=== PATIENT | female | born 1955 | race Asian ===

== ENCOUNTER 2016-08-31 13:32 | Outpatient (CLI) | payer OTHER ==
[2016-08-31 15:09] LABS: BASOPHILS # (AUTO) 0.2 K/uL (0.0-0.2); BASOPHILS % (AUTO) 1.9 % (0.0-2.0); EOSINOPHILS # (AUTO) 0.1 K/uL (0.0-0.4); EOSINOPHILS % (AUTO) 1.2 % (0.0-4.0); HEMATOCRIT 38.5 % (36-48); HEMOGLOBIN 12.9 g/dL (12.0-16.0); LYMPHOCYTES % (AUTO) 11.4 % (20.5-51.5); MEAN CORPUSCULAR HEMOGLOBIN 32 pg (27-31); MEAN CORPUSCULAR HGB CONC 34 % (32-36); MEAN CORPUSCULAR VOLUME 96 fL (79.0-98.0); MONOCYTES # (AUTO) 0.7 K/uL (0.0-1.0); MONOCYTES % (AUTO) 8.6 % (1.7-9.3); NEUTROPHILS # (AUTO) 6.5 K/uL (1.8-7.7); NEUTROPHILS % (AUTO) 76.9 % (40.0-70.0); PLATELET COUNT (AUTO) 245 K/uL (130-430); RED BLOOD CELL COUNT(AUTO) 4.03 MIL/uL (4.2-6.2); RED CELL DISTRIBUTION WIDTH 12.8 % (9.0-15.0); WHITE BLOOD COUNT (AUTO) 8.5 K/uL (4.8-10.8)
[2016-08-31 15:22] LABS: INR 0.9 (0.8-1.2); PROTHROMBIN TIME 9.7 SECS (9.5-12.5)
[2016-08-31 15:34] LABS: ALBUMIN 3.8 g/dL (3.4-4.8); CALCIUM 9.3 mg/dL (8.4-11.0); CREATININE 0.82 mg/dL (0.55-1.30); POTASSIUM 3.9 mmol/L (3.5-5.1); TOTAL BILIRUBIN 0.3 mg/dL (0.0-1.0); TOTAL PROTEIN, SERUM 8.2 g/dL (6.4-8.3)
[2016-08-31 15:44] LABS: BILIRUBIN,URINE NEGATIVE (NEGATIVE); BLOOD, URINE NEGATIVE (NEGATIVE); CLARITY/URINE CLEAR (CLEAR); COLOR,URINE YELLOW (YELLOW); GLUCOSE,URINE NEGATIVE (NEGATIVE); KETONES,URINE NEGATIVE (NEGATIVE); LEUKOCYTE ESTERASE ,URINE NEGATIVE (NEGATIVE); NITRITE, URINE NEGATIVE (NEGATIVE); PROTEIN URINE NEGATIVE (NEGATIVE); UROBILINOGEN,URINE 0.2 (0.2-1.0)
== END 2016-08-31 18:22 | disposition home or self-care (01) ==
LOC: SRD 13:32
DX: M41.84 Other forms of scoliosis, thoracic region (principal); R05 Cough
CPT/HCPCS: 36415; 71020-TC; 80053; 81003; 85025; 85610-TC; 85730-TC; 93005

== ENCOUNTER 2017-08-24 15:30 | Outpatient (CLI) | payer OTHER | END 2017-08-24 18:40 | disposition home or self-care (01) | LOC: SCA 15:30 | DX: Z01.810 Encounter for preprocedural cardiovascular examination (principal); K62.3 Rectal prolapse | CPT/HCPCS: 93005 ==

== ENCOUNTER 2022-03-28 15:28 | Inpatient (IN) | payer OTHER ==
[~2022-03-28] VITALS: Ht 149.9 cm; Wt 48.5 kg
[2022-03-28 15:30] VITALS: BP_SYST 163
[2022-03-28 17:23] LABS: BASOPHILS % (AUTO) 0.6 % (0.0-2.0); HEMATOCRIT 31.7 % (36-48); LYMPHOCYTES # (AUTO) 0.5 K/uL (1.0-5.5); LYMPHOCYTES % (AUTO) 9.3 % (20.5-51.5); MEAN CORPUSCULAR VOLUME 92 fL (79.0-98.0); MONOCYTES # (AUTO) 0.3 K/uL (0.0-1.0); MONOCYTES % (AUTO) 5.6 % (1.7-9.3); NEUTROPHILS # (AUTO) 4.2 K/uL (1.8-7.7); NEUTROPHILS % (AUTO) 84.5 % (40.0-70.0); PLATELET COUNT (AUTO) 226 K/uL (130-430); RED BLOOD CELL COUNT(AUTO) 3.44 MIL/uL (4.2-6.2); RED CELL DISTRIBUTION WIDTH 12.9 % (9.0-15.0)
--- NOTE | 2022-03-28 17:44 | NUR ---
Patient in bed 8, No acute distress noted, MD to assess patient
--- NOTE | 2022-03-28 17:50 | NUR ---
Patient states she has not been feeling well, states "I think i had covid". Patient states she is SOB, Vitals remain stable in no acute distress. Oxygen saturation 98% on RA, patient speaking in full sentences.
[2022-03-28 17:53] LABS: ANION GAP 12 (5-15); CALCIUM 8.9 mg/dL (8.4-11.0); CHLORIDE 92 mmol/L (98-107); CREATININE 0.97 mg/dL (0.55-1.30); GLUCOSE 105 mg/dL (70-99); POTASSIUM 3.8 mmol/L (3.5-5.1); SODIUM SERUM 125 mmol/L (136-145); UREA NITROGEN, BLOOD 24 mg/dL (8-21)
--- NOTE | 2022-03-28 18:00 | NUR ---
Patient remains stable in no acute distress and or discomfort.
[2022-03-28 18:02] LABS: ALANINE AMINOTRANSFERASE 29 U/L (12-78); ALBUMIN 3.2 g/dL (3.4-4.8); ASPARTATE AMINOTRANSFERASE 31 U/L (10-37); TOTAL BILIRUBIN 0.4 mg/dL (0.0-1.0)
[2022-03-28 18:09] LABS: GFR AFRICAN AMERICAN 74 mL/min (>90)
[2022-03-28] MEDS ORDERED: HYDROcodone/ACETAMIN 5-325 MG TAB (NORCO/ VICODIN) PO PRN (18:45)
[2022-03-28] MEDS ORDERED: MORPHINE 2 MG/ML INJ. SYRINGE IVP PRN (18:45)
[2022-03-28] MEDS ORDERED: ACETAMINOPHEN 325 MG TABLET PO PRN (18:45)
[2022-03-28] MEDS ORDERED: NACL 0.9% 1,000 ML IV ONE (18:45)
[2022-03-28] MEDS ORDERED: hydrALAZINE HCL 20 MG/ML VIAL IVP PRN (19:00)
--- NOTE | 2022-03-28 19:14 | NUR ---
Report given to incoming NOC RN, all cares assumed.
[2022-03-28 21:07] LABS: BILIRUBIN,URINE NEGATIVE (NEGATIVE); BLOOD, URINE NEGATIVE (NEGATIVE); CLARITY/URINE CLEAR (CLEAR); COLOR,URINE YELLOW (YELLOW); GLUCOSE,URINE NEGATIVE (NEGATIVE); KETONES,URINE 1+ (NEGATIVE); LEUKOCYTE ESTERASE ,URINE TRACE (NEGATIVE); NITRITE, URINE POSITIVE (NEGATIVE); PH,URINE 7.5 (5.0-8.0); PROTEIN URINE NEGATIVE (NEGATIVE); UROBILINOGEN,URINE 0.2 (0.2-1.0)
[2022-03-28 21:57] LABS: BACTERIA,URINE MANY /HPF (None Seen); MUCUS,URINE None Seen /LPF (None Seen); RBC,URINE NONE SEEN /HPF (0-3)
--- NOTE | 2022-03-28 22:28 | NUR ---
RN PLACED MG 16 FR PER PT REQUEST AND ER WAS NOTIFIED
[2022-03-28 23:03] VITALS: BP_SYST 145
--- NOTE | 2022-03-28 23:10 | NUR ---
PT WAS ADMITTED TO [facility] AND GIVEN REPORT TO DAGO BELL FOR CONTINUITY OF CARE
[2022-03-28] MEDS: NACL 0.9% 1,000 ML IV SCH (23:53)
[2022-03-29] MEDS ORDERED: PROTANDIM PO (00:17)
[2022-03-29] MEDS ORDERED: NITR50CA51 PO (00:27)
[2022-03-29] MEDS ORDERED: MAGN400T10 PO (00:27)
[2022-03-29] MEDS ORDERED: POTA8TAB66 PO (00:27)
[2022-03-29] MEDS ORDERED: VITD2000 PO ×2 (00:27→17:46)
--- NOTE | 2022-03-29 02:02 | NUR ---
THIS IS AN ADMISSION NOTE FOR A 67 YEAR OLD FEMALE UNDER THE CARE OF DOCTOR IMANI FOR GENERALIZED WEAKNESS, HYPONATREMIA AND DIZZINESS. DAGO UPTON RN
[2022-03-29 02:59] VITALS: BP_SYST 133
[2022-03-29 08:00] VITALS: BP_SYST 140
--- NOTE | 2022-03-29 08:00 | NUR ---
RECEIVED PATIENT IN BED AAO X4, VITAL SIGNS WITHIN NORMAL LIMITS, DENIES PAIN, SATURATION AT 100% ON ROOM AIR NOTED MG DRAINING WELL BY GRAVITY, IV NS AT 60 RUNNING TO RIGHT AC G 22, PATIENT'S BREAKFAST WAS SERVED, PATIENT'S MEDS WERE GIVEN ORDERED, CALL LIGHT PLACED TO REACH, IN NO ACUTE DISTRESS, ABLE TO MAKE NEEDS KNOWN.
[2022-03-29 08:28] LABS: BASOPHILS % (AUTO) 0.2 % (0.0-2.0); EOSINOPHILS % (AUTO) 0.1 % (0.0-4.0); HEMATOCRIT 32.4 % (36-48); LYMPHOCYTES # (AUTO) 0.5 K/uL (1.0-5.5); LYMPHOCYTES % (AUTO) 13.6 % (20.5-51.5); MEAN CORPUSCULAR VOLUME 92 fL (79.0-98.0); MONOCYTES # (AUTO) 0.3 K/uL (0.0-1.0); MONOCYTES % (AUTO) 9.1 % (1.7-9.3); NEUTROPHILS # (AUTO) 2.6 K/uL (1.8-7.7); PLATELET COUNT (AUTO) 244 K/uL (130-430); RED BLOOD CELL COUNT(AUTO) 3.51 MIL/uL (4.2-6.2); WHITE BLOOD COUNT (AUTO) 3.4 K/uL (4.8-10.8)
[2022-03-29 08:52] LABS: CALCIUM 8.5 mg/dL (8.4-11.0); CREATININE 0.77 mg/dL (0.55-1.30)
[2022-03-29] MEDS: ENOXAPARIN SODIUM 40 MG/0.4 ML SYRINGE SUBCUT SCH (09:35)
[2022-03-29] MEDS ORDERED: hydrALAZINE HCL 20 MG/ML VIAL IVP PRN (11:00)
[2022-03-29 12:09] VITALS: BP_SYST 131
--- NOTE | 2022-03-29 12:14 | NUR ---
RN reported to Dr. Denney that patient complained of lower back ache and requesting to have cipro. Patient states due to spinal cord injury hx. patient states she usually gets UTI. Dr. Denney came to the bedside to see pt. spoke to her about her health concerns, RN asked patient list of home meds for reconciliation. RN will continue to monitor. Call light placed to reach.
[2022-03-29] MEDS: NACL 0.9% 1,000 ML IV SCH (16:36)
[2022-03-29 16:45] VITALS: BP_SYST 135
--- NOTE | 2022-03-29 16:47 | NUR ---
Patient asked for a warm blanket, delivered one, denies pain, IV F bag replaced, patient tolerating well, in no acute diostress, patient call light placed to reach. Addendum: 03/29/22 at 1649 by [employer] ARABELLA Sauceda RN Patient asked for a warm blanket, delivered one, denies pain, IV F bag replaced, patient tolerating well, in no acute distress, patient call light placed to reach.
[2022-03-29] MEDS ORDERED: LEVO125T8 PO (17:46)
[2022-03-29] MEDS ORDERED: ZOLP3.5T4 SL (17:46)
[2022-03-29 19:37] VITALS: BP_SYST 127
[2022-03-29] MEDS ORDERED: ROSU10TA2 PO (20:26)
[2022-03-29] MEDS ORDERED: ALBUTEROL MDI INHALATION 8 GM INH INH PRN (21:30)
--- NOTE | 2022-03-29 21:40 | NUR ---
CONSULTATION PAGED/CALLED Reason for Consultation: COVID Person Who was Notified: LUIS ANTONIO Consulting Physician: FABIENNE Broodmare Foreman Specialty: Ordering Physician: SANTOSH
--- NOTE | 2022-03-29 22:05 | NUR ---
CONSULTATION PAGED/CALLED Reason for Consultation: COVID Person Who was Notified:DIANA Consulting Physician: BRENNAN Reproduction Specialist Specialty: Ordering Physician: SANTOSH
[2022-03-29 23:36] VITALS: BP_SYST 111
[2022-03-30] MEDS ORDERED: cefTRIAXone 1 GM VIAL ONE (02:57)
[2022-03-30] MEDS: cefTRIAXone 1 GM IVPB PREMIX 50 ML IV SCH ×2 (04:47→18:03)
[2022-03-30] MEDS: NACL 0.9% 1,000 ML IV SCH ×2 (04:48→18:03)
[2022-03-30 08:25] LABS: CALCIUM 8.5 mg/dL (8.4-11.0); CREATININE 0.76 mg/dL (0.55-1.30); POTASSIUM 3.7 mmol/L (3.5-5.1)
[2022-03-30] MEDS ORDERED: DECADRON 4 MG TABLET PO SCH (09:00)
[2022-03-30] MEDS ORDERED: HEPARIN SODIUM,PORCINE 5,000 UNITS/ML VIAL SUBCUT SCH (09:00)
[2022-03-30] MEDS ORDERED: ASCORBIC ACID 500 MG TABLET PO SCH (09:00)
[2022-03-30 10:36] VITALS: BP_SYST 113
[2022-03-30] MEDS ORDERED: CHOLECALCIFEROL (VITAMIN D3) 5,000 UNIT TABLET PO ONE (11:00)
[2022-03-30] MEDS: AZITHROMYCIN 250 MG TABLET PO SCH (12:02)
[2022-03-30] MEDS: ENOXAPARIN SODIUM 40 MG/0.4 ML SYRINGE SUBCUT SCH (12:03)
[2022-03-30] MEDS: ASCORBIC ACID 500 MG TABLET PO SCH (12:06)
[2022-03-30 13:18] VITALS: BP_SYST 121
[2022-03-30 13:40] LABS: CORRECTED WHITE BLOOD COUNT 3.7 K/uL (4.5-11.0); HEMATOCRIT 33.1 % (36-48); MEAN CORPUSCULAR VOLUME 96 fL (79.0-98.0); RED BLOOD CELL COUNT(AUTO) 3.45 MIL/uL (4.2-6.2); WHITE BLOOD COUNT (AUTO) 3.7 K/uL (4.8-10.8)
[2022-03-30 13:41] LABS: BASOPHILS % (AUTO) 0.4 % (0.0-2.0); EOSINOPHILS % (AUTO) 0.8 % (0.0-4.0); LYMPHOCYTES # (AUTO) 0.6 K/uL (1.0-5.5); LYMPHOCYTES % (AUTO) 15.2 % (20.5-51.5); MONOCYTES # (AUTO) 0.4 K/uL (0.0-1.0); MONOCYTES % (AUTO) 11.5 % (1.7-9.3); NEUTROPHILS # (AUTO) 2.6 K/uL (1.8-7.7); NEUTROPHILS % (AUTO) 72.1 % (40.0-70.0); PLATELET COUNT (AUTO) 250 K/uL (130-430)
[2022-03-30 16:38] VITALS: BP_SYST 125
[2022-03-30 20:00] VITALS: BP_SYST 127
[2022-03-31] VITALS: BP_SYST 121
[2022-03-31 04:00] VITALS: BP_SYST 126
[2022-03-31 07:12] LABS: CALCIUM 8.9 mg/dL (8.4-11.0); CREATININE 0.89 mg/dL (0.55-1.30); POTASSIUM 4.1 mmol/L (3.5-5.1)
[2022-03-31 07:24] LABS: BASOPHILS % (AUTO) 0.4 % (0.0-2.0); EOSINOPHILS # (AUTO) 0.1 K/uL (0.0-0.4); EOSINOPHILS % (AUTO) 2.1 % (0.0-4.0); HEMATOCRIT 33.1 % (36-48); LYMPHOCYTES # (AUTO) 0.7 K/uL (1.0-5.5); LYMPHOCYTES % (AUTO) 17.8 % (20.5-51.5); MEAN CORPUSCULAR VOLUME 93 fL (79.0-98.0); MONOCYTES # (AUTO) 0.5 K/uL (0.0-1.0); MONOCYTES % (AUTO) 11.8 % (1.7-9.3); NEUTROPHILS # (AUTO) 2.8 K/uL (1.8-7.7); NEUTROPHILS % (AUTO) 67.9 % (40.0-70.0); PLATELET COUNT (AUTO) 274 K/uL (130-430); RED BLOOD CELL COUNT(AUTO) 3.54 MIL/uL (4.2-6.2); RED CELL DISTRIBUTION WIDTH 13.1 % (9.0-15.0); WHITE BLOOD COUNT (AUTO) 4.1 K/uL (4.8-10.8)
[2022-03-31] MEDS ORDERED: LEVO-62 PO (08:05)
[2022-03-31] MEDS ORDERED: CHOLECALCIFEROL (VITAMIN D3) 5,000 UNIT TABLET PO SCH (09:00)
[2022-03-31] MEDS: ASCORBIC ACID 500 MG TABLET PO SCH (09:15)
[2022-03-31] MEDS: AZITHROMYCIN 250 MG TABLET PO SCH (09:16)
[2022-03-31] MEDS: ENOXAPARIN SODIUM 40 MG/0.4 ML SYRINGE SUBCUT SCH (09:17)
[2022-03-31 10:22] VITALS: BP_SYST 134
[2022-03-31 12:00] LABS: LACTATE DEHYDROGENASE 157 U/L (81-234)
[2022-03-31 12:01] LABS: C-REACTIVE PROTEIN QUANT < 0.2 mg/dL (0-0.5)
== END 2022-03-31 11:00 | disposition home or self-care (01) | DRG 177 ==
LOC: SED 15:28 → STU 18:38 → SMU 03-29 21:22
PROVIDERS: ADMIT Hospitalist; ATTEND Hospitalist
DX: U07.1 COVID-19 (principal); G82.50 Quadriplegia, unspecified; N17.0 Acute kidney failure with tubular necrosis; J12.82 Pneumonia due to coronavirus disease 2019; N39.0 Urinary tract infection, site not specified; E87.1 Hypo-osmolality and hyponatremia; E44.1 Mild protein-calorie malnutrition; I10 Essential (primary) hypertension; E78.5 Hyperlipidemia, unspecified; G89.29 Other chronic pain; M54.9 Dorsalgia, unspecified; R09.02 Hypoxemia; Z87.19 Personal history of other diseases of the digestive system; Z88.6 Allergy status to analgesic agent
CPT/HCPCS: 36415; 71045; 80048; 80053; 81000; 83605; 83615; 83880; 84484; 85025; 85379; 86140; 87086; 99285; G0378; J0696; J1650; Q0144